=== PATIENT | male | born 1970 | race Caucasian/White ===

== ENCOUNTER 2020-04-06 19:14 | Emergency (ER) | payer OTHER ==
--- NOTE | 2020-04-06 19:41 | ED ---
General Adult HPI - General Source: patient, EMS Mode of arrival: EMS Limitations: no limitations <Harrison Dean - Last Filed: 04/06/20 19:41> <Elias Ruiz - Last Filed: 04/07/20 11:19> - General Chief complaint: Psychiatric Symptoms Stated complaint: Mental Health Time Seen by Provider: 04/06/20 19:29 - History of Present Illness Initial comments: Dictation was produced using Earnest dictation software. please excuse any grammatical, word or spelling errors. This patient was cared for during a federal and state declared state of emergency secondary to Covid 19 Chief Complaint: 49-year-old male presents with suicidal ideation. History of Present Illness:-year-old male who presents today with suicidal ideation. Patient currently a patient at [facility] for rehabilitation for ice addiction. Patient states she's been feeling depressed and suicidal. Patient threatening to hang himself. Denies any homicidal ideation. Denies any visual or auditory hallucinations. Patient denies any history of wanting to harm himself. He has no other complaints at this time. The ROS documented in this emergency department record has been reviewed and confirmed by me. Those systems with pertinent positive or negative responses have been documented in the HPI. All other systems are other negative and/or noncontributory. PHYSICAL EXAM: General Impression: Alert and oriented x3, not in acute distress HEENT: Normocephalic atraumatic, extra-ocular movements intact, pupils equal and reactive to light bilaterally, mucous membranes moist. Cardiovascular: Heart regular rate and rhythm Chest: Able to complete full sentences, no retractions, no tachypnea Abdomen: abdomen soft, non-tender, non-distended, no organomegaly Musculoskeletal: Pulses present and equal in all extremities, no peripheral edema Motor: no focal deficits noted Neurological: CN II-XII grossly intact, no focal motor or sensory deficits noted Skin: Intact with no visualized rashes Psych: Normal affect and mood ED course: 49-year-old male presents with suicidal ideation. Signs upon arrival are within acceptable limits. Patient medically cleared for EPS evaluation. EKG interpretation: Ventricular rate [default value]. No OK prolongation, no QTC prolongation, no ST or T-wave changes noted. EKG compared to [default value] showing no changes. Overall, this EKG is unremarkable (Harrison Dean) - Related Data Home Medications Medication Instructions Recorded Confirmed ARIPiprazole [Abilify] 5 mg PO DAILY@15 04/06/20 04/06/20 ARIPiprazole [Abilify] 10 mg PO DAILY@0615 04/06/20 04/06/20 Acetaminophen Tab [Tylenol] 650 mg PO Q4H PRN 04/06/20 04/06/20 Calcium/Magnesium/Zinc 2 tab PO TID PRN 04/06/20 04/06/20 [Lftnmvh-Jtyshsqvh-Jmha Tablet] Chlorpheniramine Maleate 4 mg PO Q4H PRN 04/06/20 04/06/20 [Chlor-Trimeton] Ibuprofen [Motrin] 600 mg PO Q6H PRN 04/06/20 04/06/20 Multivitamins, Thera [Multivitamin 1 tab PO DAILY 04/06/20 04/06/20 (formulary)] Thiamine [Vitamin B-1] 100 mg PO DAILY 04/06/20 04/06/20 buPROPion HCL [Wellbutrin XL] 300 mg PO DAILY@15 04/06/20 04/06/20 traZODone HCL 50 - 150 mg PO HS 04/06/20 04/06/20 Allergies Allergy/AdvReac Type Severity Reaction Status Date / Time No Known Allergies Allergy Verified 04/06/20 21:20 Review of Systems ROS Other: All systems not noted in ROS Statement are negative. <Harrison Dean - Last Filed: 04/06/20 19:41> ROS Other: All systems not noted in ROS Statement are negative. <Elias Ruiz - Last Filed: 04/07/20 11:19> ROS Statement: Those systems with pertinent positive or pertinent negative responses have been documented in the HPI. Past Medical History Past Medical History: No Reported History Additional Past Medical History / Comment(s): Pt is currently 10 days drug free, 04/06/2020 Additional Past Surgical History / Comment(s): gavin israel Past Psychological History: Bipolar, Depression, PTSD Smoking Status: Current every day smoker Past Alcohol Use History: Rare Past Drug Use History: Cocaine, Heroin, Methamphetamine <Harrison Dean - Last Filed: 04/06/20 19:41> General Exam Limitations: no limitations <Harrison Dean - Last Filed: 04/06/20 19:41> Course Vital Signs 04/06/20 04/06/20 04/07/20 19:20 22:47 06:30 Temperature 98.9 F 97.5 F L 97.7 F Pulse Rate 88 82 89 Respiratory 16 16 16 Rate Blood Pressure 129/85 135/90 124/83 O2 Sat by Pulse 98 97 97 Oximetry 04/07/20 09:30 Temperature 97.8 F Pulse Rate 84 Respiratory 16 Rate Blood Pressure 121/87 O2 Sat by Pulse 99 Oximetry Medical Decision Making <Elias Ruiz - Last Filed: 04/07/20 11:19> - Medical Decision Making Patient seen by mental health services with plans for admission. Patient also seen by myself, Dr. Ruiz. Patient resting comfortably in bed. Patient states he is at [place] secondary to methamphetamine use. Patient omits to feeling depressed with thoughts of self-harm with specific plan of hanging. Patient also admits to hearing voices occasionally. Patient states he is on Wellbutrin and has been taking it. Positive clinical certificate completed. (Elias Ruiz) - Lab Data Lab Results 04/06/20 04/06/20 Range/Units 21:57 22:35 Urine Opiates Screen Not Detected (NotDetected) Ur Oxycodone Screen Not Detected (NotDetected) Urine Methadone Screen Not Detected (NotDetected) Ur Propoxyphene Screen Not Detected (NotDetected) Ur Barbiturates Screen Not Detected (NotDetected) U Tricyclic Antidepress Not Detected (NotDetected) Ur Phencyclidine Scrn Not Detected (NotDetected) Ur Amphetamines Screen Not Detected (NotDetected) U Methamphetamines Scrn Not Detected (NotDetected) U Benzodiazepines Scrn Not Detected (NotDetected) Urine Cocaine Screen Not Detected (NotDetected) U Marijuana (THC) Screen Not Detected (NotDetected) Coronavirus (PCR) Not Detected (Not Detectd) Disposition <Harrison Dean - Last Filed: 04/06/20 19:41> Is patient prescribed a controlled substance at d/c from ED?: No Time of Disposition: 11:19 <Elias Ruiz - Last Filed: 04/07/20 11:19> Clinical Impression: Depression, Suicidal ideation Disposition: TRANSFER TO PSYCH HOSP/UNIT Referrals: None,Stated [Primary Care Provider] - 1-2 days
[2020-04-06 23:08] LABS: Amphetamine Screen,Urine Not Detected (NotDetected); Barbiturate Screen,Urine Not Detected (NotDetected); Benzodiazepines Screen,Urine Not Detected (NotDetected); Cocaine Screen,Urine Not Detected (NotDetected); Methadone Screen, Urine Not Detected (NotDetected); Opiate Screen,Urine Not Detected (NotDetected); Oxycodone Screen, Urine Not Detected (NotDetected); Phencyclidine Screen,Urine Not Detected (NotDetected); Tricyclic Antidepressant,Urine Not Detected (NotDetected); Urn Cannabinoid Scrn Not Detected (NotDetected)
[2020-04-07 12:25] LABS: Basophils # (A) 0.2 k/uL (0-0.2); Basophils % (A) 1 %; Eosinophils # (A) 0.5 k/uL (0-0.7); Eosinophils % (A) 3 %; HCT 41.9 % (39.0-53.0); HGB 13.7 gm/dL (13.0-17.5); Lymphocytes # (A) 3.2 k/uL (1.0-4.8); Lymphocytes % (A) 23 %; MCHC 32.8 g/dL (31.0-37.0); MCV 82.2 fL (80.0-100.0); Mean Platelet Volume 7.4; Monocytes # (A) 0.7 k/uL (0-1.0); Monocytes % (A) 5 %; Neutrophils % (A) 65 %; Platelet Count 301 k/uL (150-450); RDW 13.4 % (11.5-15.5)
[2020-04-07 12:34] LABS: ALT 80 U/L (4-49); AST 60 U/L (17-59); African American GFR (CKD) >90 (>60 ml/min/1.73 sqM); Albumin 3.8 g/dL (3.5-5.0); Alkaline Phosphatase 146 U/L (38-126); Anion Gap 6 mmol/L; Blood Urea Nitrogen 17 mg/dL (9-20); Calcium 9.5 mg/dL (8.4-10.2); Carbon Dioxide 27 mmol/L (22-30); Chloride 105 mmol/L (98-107); Glucose 94 mg/dL (74-99); Non-African American GFR(CKD) >90 (>60 ml/min/1.73 sqM); Potassium 4.9 mmol/L (3.5-5.1); Sodium 138 mmol/L (137-145); Total Bilirubin 0.6 mg/dL (0.2-1.3); Total Protein 7.3 g/dL (6.3-8.2)
[2020-04-07 20:28] VITALS: BP 128/87; PULSE 86; RESP 20; TEMP 98
== END 2020-04-08 00:54 ==
LOC: EC 19:14
DX: Z03.818 Encounter for observation for suspected exposure to other biological agents ruled out (principal); R45.851 Suicidal ideations; F32.9 Major depressive disorder, single episode, unspecified; F43.10 Post-traumatic stress disorder, unspecified; F17.200 Nicotine dependence, unspecified, uncomplicated; Z79.899 Other long term (current) drug therapy
CPT/HCPCS: 36415; 80053; 80306; 82075; 85025; 87635; 99285